=== PATIENT | male | born 1995 | race Caucasian/White ===

== ENCOUNTER 2018-03-01 14:27 | Emergency (ER) | payer SELFPAY ==
[~2018-03-01] VITALS: Ht 188 cm; Wt 82.6 kg
[2018-03-01 14:50] VITALS: BP 130/75
--- NOTE | 2018-03-01 15:00 | NUR ---
22 M BIB MOTHER WITH C/O LACERATION TO 2ND DIGIT OF LEFT HAND TODAY. PATIENT STATES HE WAS USING A BLADE TO CUT LUGNUT. BLEEDING CONTROLLED. CMS INTACT. PATIENT DENIES ANY NUMBNESS OR TINGLING. PT IS AOX4 WITH STEADY GAIT. RR ARE EVEN AND UNLABORED. AWAITING ER MD ALVARADO. VSS. WILL CONTINUE TO MONITOR.
[2018-03-01] MEDS ORDERED: LIDOCAINE 1% 500 MG/50 ML VIAL INJ ONE (16:10)
[2018-03-01] MEDS ORDERED: NEOMYCIN/POLYMYXIN/BACITRACIN 0.9 GM/1 PKT TP ONE (16:10)
[2018-03-01] MEDS ORDERED: LIDOCAINE 2% 1000 MG/50 ML VIAL INJ ONE (16:21)
--- NOTE | 2018-03-01 16:50 | NUR ---
AWAITING LACERATION REPAIR. ER MD ARIAS AWARE. VSS. WILL CONTINUE TO MONITOR.
--- NOTE | 2018-03-01 17:28 | NUR ---
ER MD ARIAS BY BEDSIDE REPAIRING LACERATION VIA SUTURES. PATIENT TOLERATED WELL.
[2018-03-01 18:18] VITALS: BP 128/70
--- NOTE | 2018-03-01 18:18 | NUR ---
Patient discharged with v/s stable. Written and verbal after care instructions given and explained. Patient verbalized understanding. Ambulatory with steady gait. All questions addressed prior to discharge. Advised to follow up with PMD.
== END 2018-03-01 18:18 | disposition home or self-care (01) ==
LOC: MED 14:27
DX: S61.211A Laceration without foreign body of left index finger without damage to nail, initial encounter (principal); W26.8XXA Contact with other sharp object(s), not elsewhere classified, initial encounter; Y93.G9 Activity, other involving cooking and grilling; Y92.89 Other specified places as the place of occurrence of the external cause; Y99.8 Other external cause status
CPT/HCPCS: 12001; 90471; 90715; 99283; J2001